=== PATIENT | male | born 1955 | race Two or more races ===

== ENCOUNTER 2024-10-02 08:50 | Emergency (ER) | payer MEDICAID, OTHER ==
[~2024-10-02] VITALS: Ht 185.4 cm; Wt 100.0 kg
[2024-10-02] MEDS: MORPHINE SULFATE 4 MG/ML SYR/VIAL ONE (10:12)
[2024-10-02] MEDS: ONDANSETRON HCL 4 MG/2 ML VIAL IV ONE (10:13)
[2024-10-02] MEDS: MORPHINE SULFATE 4 MG/ML SYR/VIAL IV ONE (10:13)
[2024-10-02] MEDS: ONDANSETRON HCL 4 MG/2 ML VIAL ONE (10:13)
[2024-10-02] MEDS ORDERED: ONDANSETRON HCL 4 MG/2 ML VIAL IV ONE (10:15)
[2024-10-02] MEDS ORDERED: MORPHINE SULFATE 4 MG/ML SYR/VIAL IV ONE (10:15)
--- NOTE | 2024-10-02 10:17 | ED.PDOC ---
History of Present Illness HPI Comments 68-year-old male brought by paramedics from home because of right side nose bridge bleed. Chief Complaint: Wound Check Time Seen by MD: 08:59 Allergies: Coded Allergies: NO KNOWN ALLERGIES (Unverified , 10/02/24) Mode of Arrival: EMS Physical Exam General Appearance: Moderate Distress HEENT: Normal ENT Inspection, Pharynx Normal, TMs Normal Neck: Full Range of Motion, Non-Tender, Normal, Normal Inspection Respiratory: Chest Non-Tender, Lungs Clear, No Accessory Muscle Use, No Respiratory Distress, Normal Breath Sounds Cardiovascular: No Edema, No JVD, No Murmur, No Gallop, Normal Peripheral Pulses, Regular Rate/Rhythm Breast Exam: Deferred Gastrointestinal: No Organomegaly, Non Tender, No Pulsatile Mass, Normal Bowel Sounds, Soft Genitalia: Deferred Pelvic: Deferred Rectal: Deferred Extremities: No calf tenderness, Normal capillary refill, Normal inspection, Normal range of motion, Non-tender, No pedal edema Musculoskeletal : Apperance: Normal Neurologic: Alert, No Motor Deficits, No Sensory Deficits Cerebellar Function: NOT DONE Reflexes: NOT DONE Skin: Wounds (Right nasal surgical wound bleeding) Peripheral Pulses: 3+ Radial (R), 3+ Radial (L) Lymphatic: No Adenopathy Was a procedure done? Was a procedure done?: No Differential Dx Considerations may include: Wound care Electrolyte imbalance X-Ray, Labs, Meds, VS Vital Signs Date Time Temp Pulse Resp B/P (MAP) Pulse Ox O2 Delivery O2 Flow Rate FiO2 10/02/24 10:30 82 21 153/99 (117) 10/02/24 10:13 80 20 148/94 10/02/24 10:00 84 21 149/94 (112) 10/02/24 09:47 81 18 126/82 (97) 10/02/24 09:16 Room Air* 0 21 10/02/24 09:15 Room Air* 0 21 10/02/24 09:06 84 10/02/24 08:50 98.0 95 18 170/106 (127) 100 Current Medications Medications (Trade) Dose Ordered Sig/Paulino Route Start Time Stop Time Status Last Admin Morphine Sulfate 4 mg ONCE ONCE IV 10/02/24 10:15 10/02/24 10:16 DC 10/02/24 10:13 Ondansetron HCl (Zofran) 4 mg ONCE ONCE IV 10/02/24 10:15 10/02/24 10:16 DC 10/02/24 10:13 Patient alert. Had recent surgery on his nose. Started bleeding this morning. Vitals stable. He does not take blood thinners. Try to control manually. Arterial bleed. Was given morphine. Was given Zofran. Was able to speak to Ravia. Ravia stated that patient can be transferred to any facility[facility] Continue to hold manual pressure. Time of 1ST Reevaluation: 11:23 Reevaluation 1ST: Unchanged Patient Education/Counseling: Diagnosis, Treatment, Prognosis, Need For Follow Up Family Education/Counseling: No Family Present Departure 1 Departure Time of Disposition: 11:25 Impression: Primary Impression: Hypertensive urgency Additional Impressions: Nosebleed H/O basal cell carcinoma excision Disposition: 02 SHORT TERM HOSPITAL Admit to: Med Surg Condition: Guarded Critical Care Note Critical Care Time?: Yes (90 min-critical care time only) Critical care comment: Continue to be bleeding Stability Stability form required: No Heart Score Heart Score: Heart Score Response (Comments) Value History N/A 0 EKG N/A 0 Age N/A 0 Risk Factors N/A 0 Troponin N/A 0 Total 0 RY DOUGLAS MD Oct 02, 2024 10:17
[2024-10-02 11:58] VITALS: BP 112/62; PULSE 82; RESP 20; TEMP 98; O2SAT 100
== END 2024-10-02 11:56 | disposition short-term general hospital (02) ==
LOC: EDBD 08:50 → ER 08:50
DX: I16.0 Hypertensive urgency (principal); R04.0 Epistaxis
CPT/HCPCS: 96374; 96375; 99291; J2270; J2405